=== PATIENT | female | born 1985 | race Two or more races ===

== ENCOUNTER 2022-04-16 15:40 | Emergency (ER) | payer MEDICAID, OTHER ==
[~2022-04-16] VITALS: Ht 165.1 cm; Wt 38.6 kg
[2022-04-16] MEDS ORDERED: ACETAMINOPHEN 325 MG TAB PO ONE (16:45)
[2022-04-16 17:07] LABS: Urine Bacteria FEW /hpf (None Seen); Urine Blood Negative /uL (Negative); Urine Hyaline Cast FEW /lpf (0 - 2); Urine Mucus FEW (None Seen); Urine WBC 3 /hpf (0 - 5)
[2022-04-16] MEDS ORDERED: LIDOCAINE 1% HCL (LOCAL ANESTH.) INJ 20ML MDV ID ONE (17:45)
[2022-04-16] MEDS ORDERED: LIDOCAINE 2%HCL (LOCAL ANESTH.) INJ 10ml MDV IJ ONE (18:00)
[2022-04-16 19:00] VITALS: BP 118/68
== END 2022-04-16 19:05 | disposition home or self-care (01) ==
LOC: EEVIPCON 15:40 → EDBD 15:40 → ER 15:40
DX: O26.891 Other specified pregnancy related conditions, first trimester (principal); S01.111A Laceration without foreign body of right eyelid and periocular area, initial encounter; Z3A.09 9 weeks gestation of pregnancy; Y04.2XXA Assault by strike against or bumped into by another person, initial encounter; Y93.89 Activity, other specified; Y92.89 Other specified places as the place of occurrence of the external cause; Y99.8 Other external cause status
CPT/HCPCS: 12011; 36415; 81001; 81025; 84702; 99283; J2001

== ENCOUNTER 2022-05-01 11:04 | Emergency (ER) | payer MEDICAID ==
[~2022-05-01] VITALS: Ht 165.1 cm; Wt 92.1 kg
[2022-05-01 11:07] VITALS: BP 129/60
== END 2022-05-01 14:56 | disposition left against medical advice (07) ==
LOC: ER 11:04
DX: O20.8 Other hemorrhage in early pregnancy (principal); Z3A.16 16 weeks gestation of pregnancy
CPT/HCPCS: 76801

== ENCOUNTER 2022-08-22 18:39 | Emergency (ER) | payer MEDICAID | END 2022-08-22 20:12 | disposition left against medical advice (07) | LOC: ER 18:40 | DX: R10.9 Unspecified abdominal pain (principal); Z53.21 Procedure and treatment not carried out due to patient leaving prior to being seen by health care provider ==

== ENCOUNTER 2023-08-16 23:04 | Emergency (ER) | payer MEDICAID | END 2023-08-17 | disposition left against medical advice (07) | LOC: ER 23:04 | DX: M54.50 Low back pain, unspecified (principal); Z53.21 Procedure and treatment not carried out due to patient leaving prior to being seen by health care provider ==

== ENCOUNTER 2024-02-18 18:26 | Emergency (ER) | payer MEDICAID ==
[~2024-02-18] VITALS: Ht 165.1 cm; Wt 97.7 kg
[2024-02-18 18:31] VITALS: BP 128/84; RESP 18; O2SAT 99
[2024-02-18 20:14] VITALS: PULSE 72
== END 2024-02-18 20:11 | disposition home or self-care (01) ==
LOC: ER 18:26 → EDBD 18:26 → ER 20:11
DX: F41.9 Anxiety disorder, unspecified (principal); Z79.899 Other long term (current) drug therapy
CPT/HCPCS: 93005